=== PATIENT | female | born 1985 | race Caucasian/White ===

== ENCOUNTER 2017-01-12 08:54 | Inpatient (IN) | payer BC, OTHER ==
[~2017-01-12] VITALS: Ht 152.4 cm; Wt 77.1 kg
[2017-01-12 18:22] LABS: *URINE HCG, QUAL NEGATIVE (NEGATIVE)
[2017-01-12] MEDS ORDERED: ONDANSETRON 4 MG/2 ML VIAL IM PRN (18:30)
[2017-01-12] MEDS ORDERED: LOPERAMIDE HCL 2 MG CAPSULE PO PRN ×2 (18:30)
[2017-01-12] MEDS ORDERED: LORAZEPAM 2 MG/1 ML VIAL IM PRN (18:30)
[2017-01-12] MEDS ORDERED: MAG HYDROX/AL HYDROX/SIMETH 30 ML LIQUID UDC PO PRN (18:30)
[2017-01-12] MEDS ORDERED: diphenhydrAMINE 50 MG CAPSULE PO PRN (18:30)
[2017-01-12] MEDS ORDERED: ACETAMINOPHEN 325 MG TABLET PO PRN (18:30)
[2017-01-12] MEDS ORDERED: ONDANSETRON ODT 4 MG TAB.RAPDIS SL PRN (18:30)
[2017-01-12] MEDS ORDERED: MAGNESIUM HYDROXIDE 30 ML LIQUID UDC PO PRN (18:30)
[2017-01-12] MEDS ORDERED: LORAZEPAM 1 MG TABLET PO PRN ×2 (18:30)
[2017-01-12] MEDS ORDERED: THIAMINE HCL 200 MG/2 ML VIAL IM ONE (18:30)
[2017-01-12] MEDS ORDERED: MIRALAX 17 GM POWD.PACK PO PRN (18:30)
[2017-01-12 18:32] LABS: *AMPHETAMINE, URINE NEGATIVE (NEGATIVE); *BARBITURATE, URINE NEGATIVE (NEGATIVE); *CANNABINOID, URINE NEGATIVE (NEGATIVE); *COCCAINE, URINE NEGATIVE (NEGATIVE); *OPIATE, URINE NEGATIVE (NEGATIVE); *PHENCYCLIDINE SCREEN,URINE NEGATIVE (NEGATIVE)
[2017-01-12 18:56] VITALS: BP 140/103
[2017-01-12 19:01] VITALS: BP 140/103
[2017-01-12] MEDS ORDERED: MAGNESIUM OXIDE 400 MG TABLET PO ONE (21:45)
[2017-01-12] MEDS ORDERED: LORAZEPAM 1 MG TABLET PO ONE (21:45)
[2017-01-12] MEDS ORDERED: MAGNESIUM OXIDE 400 MG TABLET ONE (22:25)
[2017-01-12] MEDS ORDERED: THIAMINE HCL 200 MG/2 ML VIAL ONE (22:26)
[2017-01-12] MEDS ORDERED: LORAZEPAM 1 MG TABLET ONE (22:26)
[2017-01-12] MEDS ORDERED: CLONIDINE HCL 0.1 MG TABLET ONE (22:27)
[2017-01-12] MEDS ORDERED: IBUPROFEN 400 MG TABLET ONE (22:28)
[2017-01-12] MEDS: IBUPROFEN 400 MG TABLET PO PRN (22:29)
[2017-01-12] MEDS: CLONIDINE HCL 0.1 MG TABLET PO PRN (22:29)
[2017-01-13] VITALS: BP 124/84
[2017-01-13] MEDS: DICYCLOMINE HCL 20 MG TABLET PO PRN (00:33)
[2017-01-13] MEDS ORDERED: diphenhydrAMINE 50 MG CAPSULE ONE (00:37)
[2017-01-13] MEDS ORDERED: DICYCLOMINE HCL 20 MG TABLET ONE (00:37)
[2017-01-13 04:00] VITALS: BP 115/79
[2017-01-13] MEDS ORDERED: ELVI1TAB3 PO (06:36)
[2017-01-13] MEDS ORDERED: FLUT16SP BNOSTRILS (06:36)
[2017-01-13] MEDS: CLONIDINE HCL 0.1 MG TABLET PO PRN (07:10)
[2017-01-13] MEDS: HYDROXYZINE PAMOATE 25 MG CAPSULE PO PRN (07:10)
[2017-01-13 08:00] VITALS: BP 118/70
[2017-01-13] MEDS: LORAZEPAM 1 MG TABLET PO SCH ×4 (08:55→20:45)
[2017-01-13] MEDS: MULTIVITAMINS,THERAPEUTIC TABLET PO SCH (08:56)
[2017-01-13] MEDS: THIAMINE HCL 100 MG TABLET PO SCH (08:56)
[2017-01-13] MEDS: FOLIC ACID 1 MG TABLET PO SCH (08:56)
[2017-01-13] MEDS ORDERED: TUBERCULIN,PURIF.PROT.DERIV. 5 TU/0.1 ML TEST ID ONE (09:00)
[2017-01-13] MEDS ORDERED: DULO30CA2 PO (10:12)
[2017-01-13] MEDS ORDERED: ASCO500C16 PO (10:17)
[2017-01-13] MEDS ORDERED: CHOL10002 PO (10:17)
[2017-01-13] MEDS ORDERED: TRAZ-147 PO (10:17)
[2017-01-13] MEDS ORDERED: CETI-355 PO (10:17)
[2017-01-13] MEDS ORDERED: LEVO75TA PO (10:17)
[2017-01-13] MEDS ORDERED: OMEG1CAP GT (10:17)
[2017-01-13 12:00] VITALS: BP 110/72
[2017-01-13] MEDS ORDERED: BUPRENORPHINE HCL 2 MG TAB.SUBL SL PRN (13:00)
[2017-01-13] MEDS ORDERED: QUETIAPINE FUMARATE 25 MG TABLET PO PRN (13:15)
[2017-01-13] MEDS: DULOXETINE 30 MG CAPSULE.DR PO SCH (13:32)
[2017-01-13] MEDS: BUPRENORPHINE HCL 2 MG TAB.SUBL SL SCH ×3 (13:32→20:47)
[2017-01-13] MEDS: OMEGA-3 FATTY ACIDS/FISH OIL CAPSULE PO SCH (14:33)
[2017-01-13] MEDS: CHOLECALCIFEROL 1,000 UNIT TABLET PO SCH (14:33)
[2017-01-13] MEDS ORDERED: FURO-152 PO (15:57)
[2017-01-13 16:00] VITALS: BP 141/82
[2017-01-13] MEDS: GENVOYA PO SCH (16:32)
[2017-01-13 20:00] VITALS: BP 124/82
[2017-01-13] MEDS: CETIRIZINE HCL 10 MG TABLET PO SCH (20:45)
[2017-01-13] MEDS: TRAZODONE 100 MG TABLET PO SCH (20:45)
[2017-01-13] MEDS: GABAPENTIN 300 MG CAPSULE PO SCH (20:45)
[2017-01-13] MEDS ORDERED: PATIENT MAY USE OWN MED- MD OK PO SCH (21:00)
[2017-01-14 04:00] VITALS: BP 99/54
[2017-01-14] MEDS: LEVOTHYROXINE SODIUM 75 MCG TABLET PO SCH (06:58)
[2017-01-14] MEDS: FLUTICASONE NS SCH (08:42)
[2017-01-14] MEDS: CHOLECALCIFEROL 1,000 UNIT TABLET PO SCH (08:43)
[2017-01-14] MEDS: MULTIVITAMINS,THERAPEUTIC TABLET PO SCH (08:43)
[2017-01-14] MEDS: OMEGA-3 FATTY ACIDS/FISH OIL CAPSULE PO SCH (08:43)
[2017-01-14] MEDS: LORAZEPAM 1 MG TABLET PO SCH ×3 (08:43→21:37)
[2017-01-14] MEDS: THIAMINE HCL 100 MG TABLET PO SCH (08:43)
[2017-01-14] MEDS: BUPRENORPHINE HCL 2 MG TAB.SUBL SL SCH ×3 (08:43→21:38)
[2017-01-14] MEDS: DULOXETINE 30 MG CAPSULE.DR PO SCH (08:43)
[2017-01-14] MEDS: GABAPENTIN 300 MG CAPSULE PO SCH ×2 (08:43→14:04)
[2017-01-14] MEDS: FOLIC ACID 1 MG TABLET PO SCH (08:44)
[2017-01-14 08:52] VITALS: BP 141/91
[2017-01-14] MEDS ORDERED: PATIENT MAY USE OWN MED- MD OK PO SCH ×3 (09:00)
[2017-01-14 15:04] VITALS: BP 136/68
[2017-01-14] MEDS: HYDROXYZINE PAMOATE 25 MG CAPSULE PO PRN (15:20)
[2017-01-14] MEDS: CLONIDINE HCL 0.1 MG TABLET PO PRN (15:20)
[2017-01-14] MEDS: DICYCLOMINE HCL 20 MG TABLET PO PRN (15:20)
[2017-01-14] MEDS: METHOCARBAMOL 750 MG TABLET PO PRN (15:20)
[2017-01-14] MEDS ORDERED: LORAZEPAM 1 MG TABLET PO ONE (16:30)
[2017-01-14] MEDS ORDERED: BUPRENORPHINE HCL 2 MG TAB.SUBL SL ONE (16:30)
[2017-01-14] MEDS: GENVOYA PO SCH (16:40)
[2017-01-14 17:38] VITALS: BP 130/89
[2017-01-14 20:25] VITALS: BP 134/88
[2017-01-14] MEDS ORDERED: GABAPENTIN 300 MG CAPSULE PO SCH (21:00)
[2017-01-14] MEDS: TRAZODONE 100 MG TABLET PO SCH (21:37)
[2017-01-14] MEDS: CETIRIZINE HCL 10 MG TABLET PO SCH (21:38)
[2017-01-14] MEDS: IBUPROFEN 400 MG TABLET PO PRN (22:35)
[2017-01-15] VITALS (7 sets, daily range): BP systolic 101–140; BP diastolic 64–100
[2017-01-15] MEDS: LEVOTHYROXINE SODIUM 75 MCG TABLET PO SCH (06:45)
[2017-01-15 07:41] LABS: BASOPHILS # (AUTO) 0.1 K/uL (0.0-8.0); BASOPHILS % (AUTO) 0.9 % (0.0-2.0); EOSINOPHILS # (AUTO) 0.1 K/uL (0.0-0.7); EOSINOPHILS % (AUTO) 1.6 % (0.0-7.0); HEMATOCRIT 44.9 % (37-47); HEMOGLOBIN 15.4 G/DL (12.0-16.0); LYMPHOCYTES # (AUTO) 4.2 K/UL (0.8-4.8); LYMPHOCYTES % (AUTO) 48.7 % (20.5-51.5); MEAN CORPUSCULAR HEMOGLOBIN 34.2 UUG (27.0-31.0); MEAN CORPUSCULAR HGB CONC 34 g/dL (32.0-37.0); MEAN CORPUSCULAR VOLUME 99.6 FL (81.0-99.0); MONOCYTES # (AUTO) 0.6 K/UL (0.1-1.30); MONOCYTES % (AUTO) 7.1 % (0.0-11.0); NEUTROPHILS # (AUTO) 3.6 K/UL (1.8-8.9); NEUTROPHILS % (AUTO) 41.7 % (38.5-71.5); PLATELET COUNT (AUTO) 252 K/UL (150-450); RED BLOOD CELL COUNT(AUTO) 4.51 MIL/UL (4.2-5.4); RED CELL DISTRIBUTION WIDTH 13.2 % (11.5-14.5); WHITE BLOOD COUNT (AUTO) 8.6 K/UL (4.0-11.2)
[2017-01-15 07:54] LABS: CALCIUM 9.6 mg/dL (8.5-10.1); CREATININE 1.1 mg/dL (0.6-1.3); MAGNESIUM 1.7 mg/dL (1.8-2.4); PHOSPHOROUS 3.7 mg/dL (2.5-4.9); POTASSIUM 3.9 mmol/L (3.5-5.1)
[2017-01-15 08:08] LABS: FOLIC ACID 15.6 NG/ML (8.6-58.9)
[2017-01-15] MEDS: LORAZEPAM 1 MG TABLET PO SCH ×4 (08:39→20:35)
[2017-01-15] MEDS: OMEGA-3 FATTY ACIDS/FISH OIL CAPSULE PO SCH (08:41)
[2017-01-15] MEDS: MULTIVITAMINS,THERAPEUTIC TABLET PO SCH (08:41)
[2017-01-15] MEDS: DULOXETINE 30 MG CAPSULE.DR PO SCH (08:41)
[2017-01-15] MEDS: THIAMINE HCL 100 MG TABLET PO SCH (08:41)
[2017-01-15] MEDS: FOLIC ACID 1 MG TABLET PO SCH (08:42)
[2017-01-15] MEDS: CHOLECALCIFEROL 1,000 UNIT TABLET PO SCH (08:42)
[2017-01-15] MEDS: FLUTICASONE NS SCH (08:44)
[2017-01-15] MEDS ORDERED: GABAPENTIN 300 MG CAPSULE PO SCH (09:00)
[2017-01-15] MEDS ORDERED: BUPRENORPHINE HCL 2 MG TAB.SUBL SL SCH (09:00)
[2017-01-15] MEDS ORDERED: MAGNESIUM OXIDE 400 MG TABLET PO ONE ×2 (10:15→16:30)
[2017-01-15] MEDS ORDERED: BUPRENORPHINE HCL 2 MG TAB.SUBL SL ONE (13:00)
[2017-01-15] MEDS ORDERED: LORAZEPAM 1 MG TABLET PO ONE (13:00)
[2017-01-15] MEDS ORDERED: HYDROXYZINE PAMOATE 25 MG CAPSULE PO PRN (15:45)
[2017-01-15] MEDS: GENVOYA PO SCH (16:58)
[2017-01-15] MEDS: BUPRENORPHINE HCL 2 MG TAB.SUBL SL SCH ×2 (16:59→20:36)
[2017-01-15] MEDS: CLONIDINE HCL 0.1 MG TABLET PO PRN (17:10)
[2017-01-15] MEDS: TRAZODONE 100 MG TABLET PO SCH (20:35)
[2017-01-15] MEDS: GABAPENTIN 300 MG CAPSULE PO SCH (20:36)
[2017-01-15] MEDS: CETIRIZINE HCL 10 MG TABLET PO SCH (20:36)
[2017-01-15] MEDS: BACLOFEN 10 MG TABLET PO SCH (20:36)
[2017-01-16 00:30] VITALS: BP 114/73
[2017-01-16 04:30] VITALS: BP 119/74
[2017-01-16] MEDS: LEVOTHYROXINE SODIUM 75 MCG TABLET PO SCH (06:45)
[2017-01-16 07:53] LABS: FOLIC ACID 16.2 NG/ML (8.6-58.9)
[2017-01-16 08:00] VITALS: BP 126/86
[2017-01-16 08:04] LABS: CALCIUM 9.2 mg/dL (8.5-10.1); CREATININE 1.1 mg/dL (0.6-1.3); MAGNESIUM 1.8 mg/dL (1.8-2.4); PHOSPHOROUS 3.8 mg/dL (2.5-4.9); POTASSIUM 4.4 mmol/L (3.5-5.1)
[2017-01-16] MEDS ORDERED: BUPRENORPHINE HCL 2 MG TAB.SUBL SL SCH ×2 (09:00→13:00)
[2017-01-16] MEDS: GABAPENTIN 300 MG CAPSULE PO SCH ×2 (09:47→15:27)
[2017-01-16] MEDS: CHOLECALCIFEROL 1,000 UNIT TABLET PO SCH (09:48)
[2017-01-16] MEDS: DULOXETINE 30 MG CAPSULE.DR PO SCH (09:48)
[2017-01-16] MEDS: MULTIVITAMINS,THERAPEUTIC TABLET PO SCH (09:48)
[2017-01-16] MEDS: OMEGA-3 FATTY ACIDS/FISH OIL CAPSULE PO SCH (09:48)
[2017-01-16] MEDS: BACLOFEN 10 MG TABLET PO SCH ×3 (09:48→21:07)
[2017-01-16] MEDS: FLUTICASONE NS SCH (09:49)
[2017-01-16] MEDS: FOLIC ACID 1 MG TABLET PO SCH (09:49)
[2017-01-16] MEDS: THIAMINE HCL 100 MG TABLET PO SCH (09:49)
[2017-01-16] MEDS: LORAZEPAM 1 MG TABLET PO SCH ×3 (09:49→21:08)
[2017-01-16 12:00] VITALS: BP 127/86
[2017-01-16 16:00] VITALS: BP 125/85
[2017-01-16] MEDS: GENVOYA PO SCH (17:03)
[2017-01-16 20:00] VITALS: BP 134/76
[2017-01-16] MEDS ORDERED: PRAZOSIN HCL 1 MG CAPSULE PO SCH (21:00)
[2017-01-16] MEDS ORDERED: GABAPENTIN 300 MG CAPSULE PO SCH (21:00)
[2017-01-16] MEDS: CETIRIZINE HCL 10 MG TABLET PO SCH (21:09)
[2017-01-16] MEDS: ARIPIPRAZOLE 5 MG TABLET PO SCH (21:09)
[2017-01-16] MEDS: TRAZODONE 100 MG TABLET PO SCH (21:10)
[2017-01-17 08:00] VITALS: BP 120/76
[2017-01-17] MEDS: LEVOTHYROXINE SODIUM 75 MCG TABLET PO SCH (08:34)
[2017-01-17] MEDS: DULOXETINE 30 MG CAPSULE.DR PO SCH (08:34)
[2017-01-17] MEDS: GABAPENTIN 300 MG CAPSULE PO SCH ×3 (08:34→20:09)
[2017-01-17] MEDS: THIAMINE HCL 100 MG TABLET PO SCH (08:35)
[2017-01-17] MEDS: FOLIC ACID 1 MG TABLET PO SCH (08:35)
[2017-01-17] MEDS: MULTIVITAMINS,THERAPEUTIC TABLET PO SCH (08:35)
[2017-01-17] MEDS: CHOLECALCIFEROL 1,000 UNIT TABLET PO SCH (08:35)
[2017-01-17] MEDS: BACLOFEN 10 MG TABLET PO SCH ×3 (08:35→20:09)
[2017-01-17] MEDS: OMEGA-3 FATTY ACIDS/FISH OIL CAPSULE PO SCH (08:36)
[2017-01-17] MEDS: FLUTICASONE NS SCH (08:37)
[2017-01-17] MEDS ORDERED: BUPRENORPHINE HCL 2 MG TAB.SUBL SL SCH ×2 (09:00)
[2017-01-17] MEDS ORDERED: LORAZEPAM 1 MG TABLET PO SCH (09:00)
[2017-01-17] MEDS ORDERED: CLONIDINE HCL 0.1 MG TABLET PO ONE (10:30)
[2017-01-17 12:00] VITALS: BP 131/88
[2017-01-17] MEDS: CLONIDINE HCL 0.1 MG TABLET PO SCH ×2 (14:09→20:08)
[2017-01-17] MEDS: IBUPROFEN 600 MG TABLET PO PRN ×2 (14:09→22:28)
[2017-01-17 15:32] LABS: *AMPHETAMINE, URINE NEGATIVE (NEGATIVE); *BARBITURATE, URINE NEGATIVE (NEGATIVE); *CANNABINOID, URINE POSITIVE (NEGATIVE); *COCCAINE, URINE NEGATIVE (NEGATIVE); *OPIATE, URINE NEGATIVE (NEGATIVE); *PHENCYCLIDINE SCREEN,URINE NEGATIVE (NEGATIVE)
[2017-01-17 16:00] VITALS: BP 118/78
[2017-01-17] MEDS: GENVOYA PO SCH (16:59)
[2017-01-17] MEDS ORDERED: ARIP5TAB4 PO (18:04)
[2017-01-17] MEDS ORDERED: Gabapentin PO (18:04)
[2017-01-17] MEDS ORDERED: HYDR-3895 PO (18:04)
[2017-01-17] MEDS ORDERED: DICY20TA28 PO (18:04)
[2017-01-17] MEDS ORDERED: DIPH50CA37 PO (18:04)
[2017-01-17] MEDS ORDERED: Baclofen PO (18:04)
[2017-01-17] MEDS ORDERED: CLON0.1T14 PO (18:04)
[2017-01-17] MEDS ORDERED: Ibuprofen PO (18:04)
[2017-01-17 20:00] VITALS: BP 135/79
[2017-01-17] MEDS: ARIPIPRAZOLE 5 MG TABLET PO SCH (20:10)
[2017-01-17] MEDS: TRAZODONE 100 MG TABLET PO SCH (20:10)
[2017-01-17] MEDS: CETIRIZINE HCL 10 MG TABLET PO SCH (20:10)
[2017-01-17] MEDS: METHOCARBAMOL 750 MG TABLET PO PRN (22:28)
[2017-01-18] MEDS: IBUPROFEN 600 MG TABLET PO PRN (06:59)
[2017-01-18] MEDS: LEVOTHYROXINE SODIUM 75 MCG TABLET PO SCH (06:59)
[2017-01-18] MEDS: METHOCARBAMOL 750 MG TABLET PO PRN (06:59)
[2017-01-18 08:00] VITALS: BP 132/90
[2017-01-18] MEDS: FOLIC ACID 1 MG TABLET PO SCH (08:37)
[2017-01-18] MEDS: GABAPENTIN 300 MG CAPSULE PO SCH (08:37)
[2017-01-18] MEDS: BACLOFEN 10 MG TABLET PO SCH (08:37)
[2017-01-18] MEDS: OMEGA-3 FATTY ACIDS/FISH OIL CAPSULE PO SCH (08:37)
[2017-01-18] MEDS: MULTIVITAMINS,THERAPEUTIC TABLET PO SCH (08:37)
[2017-01-18] MEDS: FLUTICASONE NS SCH (08:37)
[2017-01-18] MEDS: DULOXETINE 30 MG CAPSULE.DR PO SCH (08:37)
[2017-01-18 08:38] VITALS: BP 125/71
[2017-01-18] MEDS: CLONIDINE HCL 0.1 MG TABLET PO SCH (08:38)
[2017-01-18] MEDS: CHOLECALCIFEROL 1,000 UNIT TABLET PO SCH (08:38)
[2017-01-18] MEDS: THIAMINE HCL 100 MG TABLET PO SCH (08:38)
[2017-01-18] MEDS ORDERED: BUPRENORPHINE HCL 2 MG TAB.SUBL SL SCH (09:00)
== END 2017-01-18 09:30 | disposition other institution (70) | DRG 895 ==
LOC: SRC 17:52
PROVIDERS: ADMIT Internal Medicine; ATTEND Internal Medicine
PROC: HZ2ZZZZ Detoxification Services for Substance Abuse Treatment (ICD-10-PCS; principal; 2017-01-12)
PROC: HZ41ZZZ Group Counseling for Substance Abuse Treatment, Behavioral (ICD-10-PCS; 2017-01-15)
DX: F10.230 Alcohol dependence with withdrawal, uncomplicated (principal); F11.23 Opioid dependence with withdrawal; Y90.9 Presence of alcohol in blood, level not specified; G89.29 Other chronic pain; M25.571 Pain in right ankle and joints of right foot; Z81.1 Family history of alcohol abuse and dependence; Z81.8 Family history of other mental and behavioral disorders; G47.00 Insomnia, unspecified; F41.9 Anxiety disorder, unspecified; J30.2 Other seasonal allergic rhinitis; E03.9 Hypothyroidism, unspecified; F32.9 Major depressive disorder, single episode, unspecified; D75.89 Other specified diseases of blood and blood-forming organs; E83.42 Hypomagnesemia; F17.210 Nicotine dependence, cigarettes, uncomplicated; F51.4 Sleep terrors [night terrors]
CPT/HCPCS: 36415; 70030-TC; 80307; 80346; 82306; 82746; 83690; 83735; 84100; 84443; 84703; 85025; 86361; 86580; 86592; 86705; 86803; 87340; 87806; G6040-TC; J3411; Q0162; Q0163